=== PATIENT | female | born 1970 | race American Indian/Alaskan Native ===

== ENCOUNTER 2020-07-29 10:11 | Emergency (ER) | payer BC, OTHER ==
[2020-07-29] MEDS ORDERED: ONDANSETRON 4 MG/2 ML INJ IV ONE (10:35)
[2020-07-29] MEDS ORDERED: MORPHINE 4 MG/1 ML INJ IV ONE (10:35)
[2020-07-29] MEDS ORDERED: dexAMETHasone 20 MG/5 ML VIAL IV ONE (10:35)
[2020-07-29] MEDS ORDERED: CLINDAMYCIN 600 MG/50 mL 600 MG/50 ML BAG IV ONE (10:35)
[2020-07-29] MEDS ORDERED: SODIUM CHLORIDE 0.9% 1000 ML 1,000 ML IV ONE (10:36)
--- NOTE | 2020-07-29 10:39 | Emergency Department Report ---
ED ENT HPI - General Chief complaint: Dental/Oral Stated complaint: THRAOT SWELLING/CLOSING Time Seen by Provider: 07/29/20 10:35 Source: patient Mode of arrival: Ambulatory Limitations: No Limitations - History of Present Illness Initial comments: Patient is a 50-year-old female presents emergency room with complaints of right-sided neck and facial swelling that began yesterday morning. Patient states that she has had right upper dental pain for approximately a month. She states that she went to a dentist today and was advised that she needed to report to the emergency department immediately. She states that she has had some difficulty swallowing. She states earlier following she was having a choking episode but that has since resolved and she has no difficulty breathing currently. She is still able to swallow her secretions. She states that the last time she saw a dentist before today was 2 years ago. She denies any fever, vomiting, chills. No past medical history. No allergies to medications. - Related Data Allergies Allergy/AdvReac Type Severity Reaction Status Date / Time No Known Allergies Allergy Unverified 01/15/16 14:55 ED Dental HPI - General Chief complaint: Dental/Oral Stated complaint: THRAOT SWELLING/CLOSING Time Seen by Provider: 07/29/20 10:35 Source: patient Mode of arrival: Ambulatory Limitations: No Limitations - Related Data Allergies Allergy/AdvReac Type Severity Reaction Status Date / Time No Known Allergies Allergy Unverified 01/15/16 14:55 ED Review of Systems ROS: Stated complaint: THRAOT SWELLING/CLOSING Other details as noted in HPI Comment: All other systems reviewed and negative ED Past Medical Hx - Past Medical History Hx Hypertension: Yes - Social History Smoking Status: Never Smoker Substance Use Type: Alcohol ED Physical Exam - General Limitations: No Limitations General appearance: alert, in no apparent distress - Head Head exam: Present: atraumatic, normocephalic - ENT ENT exam: Present: mucous membranes moist, other (uvula is midline, no uvular edema or deviation, no trismus, no tongue elevation, no muffled voice, normal posterior oropharynx) - Neck Neck exam: Present: other (right sided submandibular edema and induration, no obvious fluctuance) - Respiratory Respiratory exam: Present: normal lung sounds bilaterally. Absent: respiratory distress, wheezes, rales, rhonchi, stridor, chest wall tenderness, accessory muscle use, decreased breath sounds, prolonged expiratory - Cardiovascular Cardiovascular Exam: Present: normal rhythm, tachycardia, normal heart sounds. Absent: systolic murmur, diastolic murmur, rubs, gallop - Neurological Exam Neurological exam: Present: alert, oriented X3 - Psychiatric Psychiatric exam: Present: normal affect, normal mood - Skin Skin exam: Present: warm, dry, intact ED Course Vital Signs 07/29/20 07/29/20 10:28 19:25 Temperature 98.0 F Pulse Rate 120 H 98 H Respiratory 20 17 Rate Blood Pressure 159/102 Blood Pressure 144/78 [Left] O2 Sat by Pulse 100 98 Oximetry - Consultations Consultation #1: 07/29/20 14:10 spoke to [facility] transfer line, he is going to assess bed availability and then call back 07/29/20 15:[address] Mendez, OMFS at [facility], advised to give patient dexamethasone, patient was already given 10 mg IV, will consult on patient, wanted patient admitted to [facility] but they did not have any beds, he is agreeing to ED transfer and will see patient in the ED 07/29/20 15:[address] Treviño, ER attending at [facility], will accept and resume care of patient, will continue care of patient ED Medical Decision Making - Lab Data Result diagrams: 07/29/20 10:56 07/29/20 10:56 Lab Results 07/29/20 07/29/20 07/29/20 Range/Units 10:56 10:56 10:56 WBC 13.2 H (4.5-11.0) K/mm3 RBC 4.87 (3.65-5.03) M/mm3 Hgb 14.4 H (10.1-14.3) gm/dl Hct 42.4 (30.3-42.9) % MCV 87 (79-97) fl MCH 30 (28-32) pg MCHC 34 (30-34) % RDW 13.9 (13.2-15.2) % Plt Count 275 (140-440) K/mm3 Lymph % (Auto) 9.9 L (13.4-35.0) % [place] % (Auto) 6.7 (0.0-7.3) % Eos % (Auto) 0.3 (0.0-4.3) % Baso % (Auto) 0.4 (0.0-1.8) % Lymph # (Auto) 1.3 (1.2-5.4) K/mm3 [place] # (Auto) 0.9 H (0.0-0.8) K/mm3 Eos # (Auto) 0.0 (0.0-0.4) K/mm3 Baso # (Auto) 0.1 (0.0-0.1) K/mm3 Seg Neutrophils % 82.7 H (40.0-70.0) % Seg Neutrophils # 10.9 H (1.8-7.7) K/mm3 Sodium 139 (137-145) mmol/L Potassium 3.4 L (3.6-5.0) mmol/L Chloride 102.5 (98-107) mmol/L Carbon Dioxide 25 (22-30) mmol/L Anion Gap 15 mmol/L BUN 11 (7-17) mg/dL Creatinine 0.9 (0.6-1.2) mg/dL Estimated GFR > 60 ml/min BUN/Creatinine Ratio 12 % Glucose 127 H (65-100) mg/dL Calcium 9.3 (8.4-10.2) mg/dL Total Bilirubin 0.50 (0.1-1.2) mg/dL AST 7 (5-40) units/L ALT 11 (7-56) units/L Alkaline Phosphatase 56 (35-129) units/L Total Protein 8.4 H (6.3-8.2) g/dL Albumin 4.6 (3.9-5) g/dL Albumin/Globulin Ratio 1.2 % HCG, Qual Negative (Negative) Vital Signs 07/29/20 07/29/20 10:28 19:25 Temperature 98.0 F Pulse Rate 120 H 98 H Respiratory 20 17 Rate Blood Pressure 159/102 Blood Pressure 144/78 [Left] O2 Sat by Pulse 100 98 Oximetry - Radiology Data Radiology results: report reviewed Ordering Physician: IMER FRANCIS Date of Service: 07/29/20 Procedure(s): CT neck w con Accession Number(s): [id number] cc: IMER FRANCIS NECK CT 07/29/2020 HISTORY: Right submandibular swelling FINDINGS: Contrast enhanced CT images of the soft tissues of the neck were obtained. Images are evaluated in the axial, coronal, and sagittal plane. In the right lateral floor of mouth region, there is a hypodense structure or collection located along the medial wall of the right mandible, anterior to the submandibular g land. This hypodense structure or collection measures 3.1 x 1.5 x 2.0 cm. There is inflammatory type soft tissue changes in the adipose tissue along the exterior aspect of this mass extending into the right submandibular region. Some reactive-type lymph nodes are present adjacent to this collection in the submandibular region, anterior to the submandibular gland. Subfibular gland itself appears to be unremarkable both in size and CT appearance. There is no evidence of abnormal calcification within the gland or along the course of its duct. Parotid glands are normal in CT appearance. Vascular and osseous structures are unremarkable. Thyroid gland is unremarkable. IMPRESSION: Right submandibular/floor of mouth hypodense collection, with some evidence of surrounding inflammatory changes. The appearance is most consistent with a small abscess rather than neoplasm. Correlation with details of clinical findings and circumstances will be helpful for further evaluation. All CT scans at this location are performed using dose reduction to ALARA by means of automated exposure control. Signer Name: Uziel Caceres MD Signed: 07/29/2020 1:28 PM Workstation Name: [id number] Transcribed By: AO Dictated By: Uziel Caceres MD Electronically Authenticated By: Uziel Caceres MD Signed Date/Time: 07/29/208 DD/ 20 TD/TT: - Medical Decision Making Patient is a 50-year-old female presents emergency room with complaints of right-sided neck and facial swelling that began yesterday morning. Patient st ates that she has had right upper dental pain for approximately a month. She states that she went to a dentist today and was advised that she needed to report to the emergency department immediately. She states that she has had some difficulty swallowing. She states earlier following she was having a choking episode but that has since resolved and she has no difficulty breathing currently. She is still able to swallow her secretions. She states that the last time she saw a dentist before today was 2 years ago. She denies any fever, vomiting, chills. No past medical history. No allergies to medications. Initial triage vitals with elevated heart rate and blood pressure which improved upon repeat. On exam: uvula is midline, no uvular edema or deviation, no trismus, no tongue elevation, no muffled voice, normal posterior oropharynx, right sided submandibular edema and induration, no obvious fluctuance. Labs today that began for elevated white blood cell count of 13,000. CT neck: Right submandibular/floor of mouth hypodense collection, with some evidence of surrounding inflammatory changes. The appearance is most consistent with a small abscess rather than neoplasm. Correlation with details of clinical findings and circumstances will be helpful for further evaluation. Concern for Marsha, patient is maintaining her airway at this time. Discussed case with Dr. Farrell, ER attending who advises to transport patient to facility with ENT/OMFS as this facility does not have those services. Patient was given 1 L normal saline, clindamycin, dexamethasone, morphine, Zofran. Spoke to Dr. Mendez, OMFS at [facility], advised to give patient dexamethasone, patient was already given 10 mg IV, will consult on patient, wanted patient admitted to [facility] but they did not have any beds, he is agreeing to ED transfer and will see patient in the ED. Spoke to Dr. Treviño, ER attending at [facility], will accept and resume care of patient, will continue care of patient. Discussed with patient and she is agreeable with plan, patient will be transported via EMS to [facility]. - Differential Diagnosis Dental abscess, submandibular abscess, Ludwigs, sialoadenitis Critical care attestation.: If time is entered above; I have spent that time in minutes in the direct care of this critically ill patient, excluding procedure time. ED Disposition Clinical Impression: Submandibular abscess Leukocytosis Qualifiers: Leukocytosis type: unspecified Qualified Code(s): D72.829 - Elevated white blood cell count, unspecified Disposition: DC/TX-70 ANOTHER TYPE HLTHCARE Is pt being admited?: No Does the pt Need Aspirin: No Condition: Serious Referrals: PRIMARY CARE, [Primary Care Provider] - 3-5 Days Time of Disposition: 15:31 Print Language: BENGALI
[2020-07-29 11:09] LABS: Basophils # (Auto) 0.1 K/mm3 (0.0-0.1); Basophils % (Auto) 0.4 % (0.0-1.8); Eosinophils % (Auto) 0.3 % (0.0-4.3); Hematocrit 42.4 % (30.3-42.9); Hemoglobin 14.4 gm/dl (10.1-14.3); Lymphocytes # (Auto) 1.3 K/mm3 (1.2-5.4); Lymphocytes % (Auto) 9.9 % (13.4-35.0); Mean Corpuscular HGB Conc 34 % (30-34); Mean Corpuscular Volume 87 fl (79-97); Monocytes # (Auto) 0.9 K/mm3 (0.0-0.8); Monocytes % (Auto) 6.7 % (0.0-7.3); Platelet Count 275 K/mm3 (140-440); Red Blood Count 4.87 M/mm3 (3.65-5.03); Red Cell Distribution Width 13.9 % (13.2-15.2)
[2020-07-29 11:30] LABS: Alanine Aminotransferase 11 units/L (7-56); Albumin 4.6 g/dL (3.9-5); BUN/Creatinine Ratio 12; Blood Urea Nitrogen 11 mg/dL (7-17); Calcium 9.3 mg/dL (8.4-10.2); Hemolysis Index 3
--- NOTE | 2020-07-29 13:33 | Cat Scan Report ---
NECK CT 07/29/2020 HISTORY: Right submandibular swelling FINDINGS: Contrast enhanced CT images of the soft tissues of the neck were obtained. Images are evalu ated in the axial, coronal, and sagittal plane. In the right lateral floor of mouth region, there is a hypodense structure or collection located karen g the medial wall of the right mandible, anterior to the submandibular gland. This hypodense structur e or collection measures 3.1 x 1.5 x 2.0 cm. There is inflammatory type soft tissue changes in the ad ipose tissue along the exterior aspect of this mass extending into the right submandibular region. So me reactive-type lymph nodes are present adjacent to this collection in the submandibular region, ant erior to the submandibular gland. Subfibular gland itself appears to be unremarkable both in size and CT appearance. There is no eviden ce of abnormal calcification within the gland or along the course of its duct. Parotid glands are normal in CT appearance. Vascular and osseous structures are unremarkable. Thyroi d gland is unremarkable. IMPRESSION: Right submandibular/floor of mouth hypodense collection, with some evidence of surroundin g inflammatory changes. The appearance is most consistent with a small abscess rather than neoplasm. Correlation with details of clinical findings and circumstances will be helpful for further evaluatio n. All CT scans at this location are performed using dose reduction to ALARA by means of automated expos ure control. Signer Name: Uziel Caceres MD Signed: 07/29/2020 1:28 PM Workstation Name: [id number]
[2020-07-29 19:26] VITALS: BP 144/78
== END 2020-07-29 20:00 | disposition other institution (70) ==
LOC: ED 10:11
DX: D72.829 Elevated white blood cell count, unspecified (principal); K12.2 Cellulitis and abscess of mouth; I10 Essential (primary) hypertension
CPT/HCPCS: 36415; 70491; 80053; 84703; 85025; 96365; 96375; 99285; J1100; J2270; J2405; J7030; Q9967